=== PATIENT | female | born 1945 | race Caucasian/White ===

== ENCOUNTER 2018-11-17 15:34 | Emergency (ER) ==
[2018-11-17 16:04] VITALS: BP 125/85
== END 2018-11-17 18:53 | disposition left against medical advice (07) ==
LOC: ER 15:34
DX: Z53.21 Procedure and treatment not carried out due to patient leaving prior to being seen by health care provider (principal); M79.89 Other specified soft tissue disorders

== ENCOUNTER 2018-11-19 10:19 | Emergency (ER) | payer OTHER ==
[2018-11-19] MEDS ORDERED: ACETAMINOPHEN 325 MG TABLET PO ONE (10:57)
--- NOTE | 2018-11-19 10:59 | ER Document Report ---
ED Medical Screen (RME) - General Chief Complaint: Ankle Swelling Stated Complaint: SWOLLEN FOOT Time Seen by Provider: 11/19/18 10:52 Mode of Arrival: Ambulatory Information source: Patient TRAVEL OUTSIDE OF THE [place] IN LAST 30 DAYS: No - HPI Patient complains to provider of: RIGHT FOOT/LEG SWELLING Notes: 11/19/18 10:58 Patient here with complaints of right leg and foot swelling. This is been present for 3 weeks. She was seen 3 weeks ago in outside hospital and states that she had an x-ray and ultrasound that were negative. She continues to have swelling of the right foot and leg. No chest pain or shortness of breath. No fever. Exam Nontoxic, no distress. Lungs clear and equal throughout. Heart sounds normal. Patient is noted to have swelling to the right lower extremity. No redness. Tenderness to palpation of the foot. Normal pulse and sensation distally. Plan CBC, CMP, coags, venous Doppler, x-ray of the agnes chest [id number] An initial examination was made on the patient as part of the triage process, and it was determined a more comprehensive evaluation was necessary. Initial labs were ordered and patient was transferred to another provider in the ED who assumed care and finished evaluation and plan. - Related Data Allergies/Adverse Reactions: morphine Adverse Reaction (Verified 11/19/18 10:22) Past Medical History - Social History Frequency of alcohol use: None Drug Abuse: None - Past Medical History Cardiac Medical History: Reports: Hx Hypertension Renal/ Medical History: Denies: Hx Peritoneal Dialysis Psychiatric Medical History: Reports: Hx Depression - anxiety Past Surgical History: Reports: Hx Cholecystectomy, Hx Genitourinary Surgery - bladder sling, Hx Mastectomy, Hx Orthopedic Surgery - carpal tunnel/left knee/julian feet Physical Exam - Vital signs Vitals: Temp Pulse Resp BP Pulse Ox 98.5 F 80 18 150/75 H 97 11/19/18 10:25 11/19/18 10:25 11/19/18 10:25 11/19/18 10:25 11/19/18 10:25 Course - Vital Signs Vital signs: Temp Pulse Resp BP Pulse Ox 98.5 F 80 18 150/75 H 97 11/19/18 10:25 11/19/18 10:25 11/19/18 10:25 11/19/18 10:25 11/19/18 10:25
[2018-11-19 11:31] LABS: ABSOLUTE EOSINOPHILS # (AUTO) 0.2 10^3/uL (0.0-0.6); ABSOLUTE LYMPHOCYTES (AUTO) 3.4 10^3/uL (0.5-4.7); ABSOLUTE MONOCYTES (AUTO) 0.5 10^3/uL (0.1-1.4); ABSOLUTE NEUT (AUTO) 4.9 10^3/uL (1.7-8.2); BASOPHILS % (AUTO) 0.2 % (0-2); EOSINOPHILS % (AUTO) 2.4 % (0-6); HEMATOCRIT 40.7 % (36.0-47.0); HEMOGLOBIN 13.9 g/dL (12.0-15.5); LYMPHOCYTES % (AUTO) 37.9 % (13-45); MEAN CORPUSCULAR HEMOGLOBIN 29.9 pg (27.0-33.4); MEAN CORPUSCULAR HGB CONC 34.1 g/dL (32.0-36.0); MEAN CORPUSCULAR VOLUME 88 fl (80-97); MONOCYTES % (AUTO) 5.7 % (3-13); PLATELET COUNT 277 10^3/uL (150-450); RED BLOOD COUNT 4.63 10^6/uL (3.72-5.28); RED CELL DISTRIBUTION WIDTH 14.7 % (11.5-14.0); SEGMENTED NEUTROPHILS % (AUTO) 53.8 % (42-78); TOTAL CELLS COUNTED % (AUTO) 100 %; WHITE BLOOD COUNT 9.1 10^3/uL (4.0-10.5)
[2018-11-19 11:33] LABS: INTERNATIONAL RATION (INR) 0.92; PARTIAL THROMBOPLASTIN TIME 29.7 SEC (23.5-35.8); PROTHROMBIN TIME 12.8 SEC (11.4-15.4)
[2018-11-19 11:44] LABS: ALANINE AMINOTRANSFERASE 15 U/L (9-52); ALBUMIN 4.7 g/dL (3.5-5.0); ALKALINE PHOSPHATASE 76 U/L (38-126); ANION GAP 10 (5-19); ASPARTATE AMINO TRANSFERASE 17 U/L (14-36); BILIRUBIN,DIRECT 0.3 mg/dL (0.0-0.4); BILIRUBIN,TOTAL 0.8 mg/dL (0.2-1.3); BLOOD UREA NITROGEN 12 mg/dL (7-20); CALCIUM 10.2 mg/dL (8.4-10.2); CARBON DIOXIDE 28 mmol/L (22-30); CHLORIDE 103 mmol/L (98-107); GLUCOSE 87 mg/dL (75-110); SODIUM 140.8 mmol/L (137-145); TOTAL PROTEIN 7.7 g/dL (6.3-8.2)
--- NOTE | 2018-11-19 12:07 | RADIOLOGY REPORT (SQ) ---
EXAM DESCRIPTION: VENOUS UNILATERAL LOWER COMPLETED DATE/TIME: 11/19/2018 11:59 am REASON FOR STUDY: SWELLING, RIGHT LEG COMPARISON: None. TECHNIQUE: Dynamic and static bernard scale and color images acquired of the right leg venous system. S elected spectral images acquired with additional compression and augmentation maneuvers. The contrala teral common femoral vein and saphenofemoral junction were also imaged. Images stored on PACS. LIMITATIONS: None. FINDINGS: COMMON FEMORAL: Normal phasicity, compression and augmentation. No visualized echogenic ma terial on bernard scale. No defects on color images. FEMORAL: Normal compression and augmentation. No visualized echogenic material on bernard scale. No defe cts on color images. POPLITEAL: Normal compression, augmentation. No visualized echogenic material on bernard scale. No defec ts on color images. CALF VESSELS: Normal compression, augmentation. No visualized echogenic material on bernard scale. No de fects on color images. GSV and SSV: Normal compression, augmentation. No visualized echogenic material on bernard scale. No def ects on color images. ANY DEEP VENOUS INSUFFICIENCY: Not evaluated. ANY EVIDENCE OF POPLITEAL CYST: No. OTHER: No other significant finding. CONTRALATERAL COMMON FEMORAL VEIN AND SAPHENOFEMORAL JUNCTION: Normal phasicity, compression and augmentation. No visualized echogenic material on bernard scale. No de fects on color images. IMPRESSION: NO EVIDENCE DVT OR SVT IN THE RIGHT LEG. TECHNICAL DOCUMENTATION: JOB ID: [id number] [employer]- All Rights Reserved Reading location - IP/workstation name: [email or web address]
--- NOTE | 2018-11-19 12:22 | RADIOLOGY REPORT (SQ) ---
EXAM DESCRIPTION: CHEST SINGLE VIEW COMPLETED DATE/TIME: 11/19/2018 12:13 pm REASON FOR STUDY: LEG SWELLING COMPARISON: None. NUMBER OF VIEWS: One view. TECHNIQUE: Single frontal radiographic view of the chest acquired. LIMITATIONS: None. FINDINGS: LUNGS AND PLEURA: No opacities, masses or pneumothorax. No pleural effusion. MEDIASTINUM AND HILAR STRUCTURES: No masses. Contour normal. HEART AND VASCULAR STRUCTURES: Heart normal in size. Normal vasculature. BONES: No acute findings. HARDWARE: Surgical clips overlie the right and left chest acosta. OTHER: No other significant finding. IMPRESSION: NO SIGNIFICANT RADIOGRAPHIC FINDING IN THE CHEST. TECHNICAL DOCUMENTATION: JOB ID: [id number] [employer]- All Rights Reserved Reading location - IP/workstation name: [email or web address]
--- NOTE | 2018-11-19 12:24 | RADIOLOGY REPORT (SQ) ---
EXAM DESCRIPTION: FOOT RIGHT COMPLETE COMPLETED DATE/TIME: 11/19/2018 12:13 pm REASON FOR STUDY: SWELLING, PAIN COMPARISON: None. NUMBER OF VIEWS: Three views. TECHNIQUE: AP, lateral and oblique radiographic images acquired of the right foot. LIMITATIONS: None. FINDINGS: MINERALIZATION: Osteopenia. BONES: No acute fracture or dislocation. No worrisome bone lesions. JOINTS: No effusions. SOFT TISSUES: No soft tissue swelling. No foreign body. OTHER: No other significant finding. IMPRESSION: No acute findings. Osteopenia. TECHNICAL DOCUMENTATION: JOB ID: [id number] [employer]- All Rights Reserved Reading location - IP/workstation name: [email or web address]
--- NOTE | 2018-11-19 12:58 | ER Document Report ---
ED Extremity Problem, Lower - General Chief Complaint: Ankle Swelling Stated Complaint: SWOLLEN FOOT Time Seen by Provider: 11/19/18 10:52 Mode of Arrival: Ambulatory Notes: 73-year-old otherwise healthy female presents to the emergency department chief complaint of right foot swelling x3 weeks. She does not know how it happened, no trauma, she says there is pain with movement and pain when she bears weight on it. She is able to move her foot and wiggle her toes. She denies any chest pain or shortness of breath, she denies any unilateral calf or thigh swelling. Does have a remote history of breast cancer 30 years ago. No recent surgeries. She is not on any estrogen therapies. TRAVEL OUTSIDE OF THE [place] IN LAST 30 DAYS: No - Related Data Allergies/Adverse Reactions: morphine Adverse Reaction (Verified 11/19/18 10:22) Past Medical History - General Information source: Patient - Social History Smoking Status: Current Every Day Smoker Frequency of alcohol use: None Drug Abuse: None Family History: None Patient has suicidal ideation: No Patient has homicidal ideation: No - Past Medical History Cardiac Medical History: Reports: Hx Hypertension Renal/ Medical History: Denies: Hx Peritoneal Dialysis Psychiatric Medical History: Reports: Hx Depression - anxiety Past Surgical History: Reports: Hx Cholecystectomy, Hx Genitourinary Surgery - bladder sling, Hx Mastectomy, Hx Orthopedic Surgery - carpal tunnel/left knee/julian feet Review of Systems - Review of Systems Constitutional: See HPI EENT: No symptoms reported Cardiovascular: See HPI Respiratory: See HPI Gastrointestinal: See HPI Genitourinary: No symptoms reported Female Genitourinary: No symptoms reported Musculoskeletal: See HPI Skin: No symptoms reported Hematologic/Lymphatic: No symptoms reported Neurological/Psychological: No symptoms reported Physical Exam - Vital signs Vitals: Temp Pulse Resp BP Pulse Ox 98.5 F 80 18 150/75 H 97 11/19/18 10:25 11/19/18 10:25 11/19/18 10:25 11/19/18 10:25 11/19/18 10:25 - Notes Notes: PHYSICAL EXAMINATION: Reviewed vital signs and charting by RN GENERAL: Alert, interacts well. No acute distress. HEAD: Normocephalic, atraumatic. EYES: Pupils equal and round. Extraocular movements intact. ENT: Oral mucosa moist, tongue midline. NECK: Full range of motion. Supple. Trachea midline. LUNGS: Clear to auscultation bilaterally, no wheezes, rales, or rhonchi. No respiratory distress. HEART: Regular rate and rhythm. No murmur ABDOMEN: soft, non-tender. Non-distended. Bowel sounds present. no McBurney's point tenderness, no Mo sign. EXTREMITIES: Moves all 4 extremities spontaneously. 1+ pitting edema right foot and ankle, no swelling of the calf, knee or thigh, brisk cap refill less than 2 seconds, strong DP and PT pulses, No cyanosis. Normal distal neurovascular exam BACK: No CVAT NEUROLOGIC: Oriented and appropriate. Normal speech. PSYCH: Normal affect, normal mood. SKIN: Warm, dry, normal turgor. No rashes or lesions noted. Course - Re-evaluation Re-evalutation: 11/19/18 12:55 Overall well-appearing. Venous Doppler negative for DVT or SVT. Foot x-rays negative for any fracture, dislocation, or any pathology. No leukocytosis, foot is not hot so I have low concern for infectious etiology. Not consistent with presentation of gout. Patient does not recall any trauma. Overall negative work-up. Patient will be placed in an Alan wrap and has been given instructions 11/19/18 12:56 - Vital Signs Vital signs: Temp Pulse Resp BP Pulse Ox 98 F 80 18 150/75 H 97 11/19/18 11:26 11/19/18 10:25 11/19/18 10:25 11/19/18 10:25 11/19/18 10:25 - Laboratory Result Diagrams: 11/19/18 11:10 11/19/18 11:10 Laboratory results interpreted by me: 11/19/18 11:10 RDW 14.7 H Discharge - Discharge Clinical Impression: Swelling of right foot Condition: Good Disposition: HOME, SELF-CARE Additional Instructions: You were seen in the emergency department this afternoon for right foot swelling. Overall you had a negative work-up which is very reassuring. You do not have a DVT or any infection of your foot. It is unclear why the swelling happened. I will place you in an Alan wrap and you should wear that during the day and you can take it off at night. You can rewrap it or have someone help you wrap it during the day. Please ice your foot for 20 minutes every 2-3 hours throughout the day to help reduce the swelling. If you have developed complete numbness of your foot, or unable to bear weight on it, develop high fever, your whole leg becomes swollen, your foot starts to turn blue or black, please merely return to the emergency department.
[2018-11-19 13:28] VITALS: BP 144/78
== END 2018-11-19 13:50 | disposition home or self-care (01) ==
LOC: ER 10:19
DX: M79.89 Other specified soft tissue disorders (principal); I10 Essential (primary) hypertension; Z88.6 Allergy status to analgesic agent; Z90.49 Acquired absence of other specified parts of digestive tract
CPT/HCPCS: 99284; 36415; 85025; 85610; 85730; 80053; 93971; 71045; 73630; L1902